=== PATIENT | female | born 1960 | race Caucasian/White ===

== ENCOUNTER 2021-02-14 21:22 | Emergency (ER) | payer MEDICAID ==
[~2021-02-14] VITALS: Ht 152.4 cm; Wt 62.6 kg
[2021-02-15 00:26] VITALS: BP 124/65
== END 2021-02-15 01:33 | disposition home or self-care (01) ==
LOC: ER 21:29
DX: R07.81 Pleurodynia (principal); R91.1 Solitary pulmonary nodule; E11.9 Type 2 diabetes mellitus without complications; F17.210 Nicotine dependence, cigarettes, uncomplicated
CPT/HCPCS: 71045; 71250